=== PATIENT | male | born 1935 ===

== ENCOUNTER 2019-05-05 11:26 | Outpatient (CLI) | payer OTHER, SELFPAY ==
--- NOTE | 2019-05-05 10:53 | DI.RAD_ITS ---
SYMPTOMS/DIAGNOSIS: PAIN LEFT KNEE: The medial tibiofemoral joint space narrowing, articular sclerosis and periarticular hypertrophic spurring are demonstrated. Findings consistent with severe DJD. RIGHT KNEE: AP and lateral projections are provided. There is medial tibiofemoral joint space narrowing, articular sclerosis and periarticular hypertrophic spurring. There may be a small joint effusion. IMPRESSION: Severe DJD is demonstrated involving the right knee. AP PELVIS: The pelvic bones are intact. There are mild degenerative changes involving the hips, nil else.
== END 2019-05-05 11:46 ==
PROVIDERS: Visit Provider Orthopaedic Surgery
DX: M17.11 Unilateral primary osteoarthritis, right knee; M25.561 Pain in right knee; M17.12 Unilateral primary osteoarthritis, left knee; M25.562 Pain in left knee
CPT/HCPCS: 20610; 99201; 99202; 72170; 73560; J1040